=== PATIENT | female | born 1975 | race Caucasian/White ===

== ENCOUNTER 2017-07-01 17:45 | Emergency (ER) | payer OTHER ==
[2017-07-01 17:55] VITALS: BMI 34.9
--- NOTE | 2017-07-01 17:56 | PDOC ---
Rapid Medical Evaluation Time Seen by Provider: 07/01/17 17:49 Medical Evaluation: Allergies Allergy/AdvReac Type Severity Reaction Status Date / Time No Known Allergies Allergy Verified 01/19/14 10:09 07/01/17 17:49 The patient presents with a chief complaint of: [Left sided back pain, Pressure with urination. Sent by Dr. Abel Mejia, r/o kidney stone because of blood in the urine. Was diagnosed with UTI on Cipro ] I have performed a brief in-person evaluation of this patient. Pertinent physical exam findings: [No cva tenderness. mild lower abdominal tenderness. ] I have ordered the following: [UA, UC, Urine preg. ] The patient will proceed to the ED for further evaluation. Discharge Disposition - Diagnosis Hematuria - Referrals - Patient Instructions - Post Discharge Activity
--- NOTE | 2017-07-01 18:41 | PDOC ---
History of Present Illness - General History Source: Patient Exam Limitations: No Limitations - History of Present Illness Initial Comments: 07/01/17 18:42 The patient is a 41 year old female with past medical history of bleeding gastric ulcer and depression who presents to the ED with complaints of left sided/LUQ pain and suprapubic pressure for the past week. The patient reported her symptoms to her PCP and was instructed to go to the ER for an ultrasound. The patient reports currently being treated for a UTI with Cipro. The patient denies history of recurrent UTI or kidney stones. She denies any fever, chills, nausea, vomiting, or diarrhea. She denies any cough, SOB, CP. The patients LMP was a few days ago. Allergies: NKDA Social: Former smoker, quit many years ago. Reports social alcohol use. Surgeries: Cholecystectomy, x2 PCP: Dr. Abel Mejia <Venessa Rodriguez - Last Filed: 07/01/17 22:53> <Miriam Muhammad - Last Filed: 07/01/17 22:58> - General Chief Complaint: Pain, Acute Stated Complaint: PCP SENT Time Seen by Provider: 07/01/17 17:49 Past History <Venessa Rodriguez - Last Filed: 07/01/17 22:53> - Past Medical History COPD: No DVT: No GI Disorders: Yes (H/O BLEEDING ULCER) - Surgical History Abdominal Surgery: Yes Cholecystectomy: (GALLSTONE REMOVAL) - Immunization History Immunization Up to Date: Yes - Suicide/Smoking/Psychosocial Hx Smoking History: Never smoked Have you smoked in the past 12 months: Yes Number of Cigarettes Smoked Daily: 20 If you are a former smoker, when did you quit?: 2012 Information on smoking cessation initiated: No Hx Alcohol Use: No Drug/Substance Use Hx: No Substance Use Type: None Hx Substance Use Treatment: No <Miriam Muhammad - Last Filed: 07/01/17 22:58> - Past Medical History Allergies/Adverse Reactions: Allergies Allergy/AdvReac Type Severity Reaction Status Date / Time No Known Allergies Allergy Verified 07/01/17 17:51 Home Medications: Ambulatory Orders Bupropion HCl [Bupropion Xl] 300 mg PO DAILY 01/13/14 Ranitidine HCl [Zantac] 150 mg PO DAILY 07/01/17 Review of Systems - Review of Systems Able to Perform ROS?: Yes Comments:: 07/01/17 18:42 CONSTITUTIONAL: Absent: fever, chills, diaphoresis, generalized weakness, malaise, loss of appetite HEENT: Absent: rhinorrhea, nasal congestion, throat pain, throat swelling, difficulty swallowing, mouth swelling, ear pain, eye pain, visual Changes CARDIOVASCULAR: Absent: chest pain, syncope, palpitations, irregular heart rate, lightheadedness , peripheral edema RESPIRATORY: Absent: cough, shortness of breath, dyspnea with exertion, orthopnea, wheezing, stridor, hemoptysis GASTROINTESTINAL: Present: suprapubic pain/pressure, LUQ pain and pressure Absent: abdominal distension, nausea, vomiting, diarrhea, constipation, melena, hematochezia GENITOURINARY: Absent: dysuria, frequency, urgency, hesitancy, hematuria, flank pain, genital pain MUSCULOSKELETAL: Absent: myalgia, arthralgia, joint swelling SKIN: Absent: rash, itching, pallor HEMATOLOGIC/IMMUNOLOGIC: Absent: easy bleeding, easy bruising, lymphadenopathy, frequent infections ENDOCRINE: Absent: unexplained weight gain, unexplained weight loss, heat intolerance, cold intolerance NEUROLOGIC: Absent: headache, focal weakness or paresthesias, dizziness, unsteady gait, seizure, mental status changes, bladder or bowel incontinence PSYCHIATRIC: Absent: anxiety, depression, suicidal or homicidal ideation, hallucinations. All Other Systems: Reviewed and Negative <Venessa Rodriguez - Last Filed: 07/01/17 22:53> *Physical Exam - Vital Signs Last Vital Signs Temp Pulse Resp BP Pulse Ox 98 F 84 16 122/96 99 07/01/17 17:51 07/01/17 17:51 07/01/17 17:51 07/01/17 17:51 07/01/17 17:51 - Physical Exam Comments: 07/01/17 18:44 GENERAL: Well developed, well nourished. Awake and alert. No acute distress. HEENT: Normocephalic, atraumatic. PERRLA, EOMI. No conjunctival pallor. Sclera are non- icteric. Moist mucous membranes. Oropharynx is clear. NECK: Supple. Full ROM. No JVD. Carotid pulses 2+ and symmetric, without bruits. No thyromegaly. No lymphadenopathy. CARDIOVASCULAR: Regular rate and rhythm. No murmurs, rubs, or gallops. Distal pulses are 2+ and symmetric. PULMONARY: No evidence of respiratory distress. Lungs clear to auscultation bilaterally. No wheezing, rales or rhonchi. ABDOMINAL: Soft. Non-tender. Non-distended. No rebound or guarding. No organomegaly. Normoactive bowel sounds. MUSCULOSKELETAL Normal range of motion at all joints. No bony deformities or tenderness. No CVA tenderness. EXTREMITIES: No cyanosis. No clubbing. No edema. No calf tenderness. SKIN: Warm and dry. Normal capillary refill. No rashes. No jaundice. NEUROLOGICAL: Alert, awake, appropriate. Cranial nerves 2-12 intact. No deficits to light touch and temperature in face, upper extremities and lower extremities. No motor deficits in the in face, upper extremities and lower extremities. Normoreflexic in the upper and lower extremities. Normal speech. Toes are down-going bilaterally. Gait is normal without ataxia. PSYCHIATRIC: Cooperative. Good eye contact. Appropriate mood and affect. <Venessa Rodriguez - Last Filed: 07/01/17 22:53> - Vital Signs Last Vital Signs Temp Pulse Resp BP Pulse Ox 98 F 84 16 122/96 99 07/01/17 17:51 07/01/17 17:51 07/01/17 17:51 07/01/17 17:51 07/01/17 17:51 <Miriam Muhammad - Last Filed: 07/01/17 22:58> ED Treatment Course - LABORATORY CBC & Chemistry Diagram: 07/01/17 20:21 07/01/17 20:21 <Venessa Rodriguez - Last Filed: 07/01/17 22:53> - LABORATORY CBC & Chemistry Diagram: 07/01/17 20:21 07/01/17 20:21 <Miriam Muhammad - Last Filed: 07/01/17 22:58> Medical Decision Making - Medical Decision Making 07/01/17 22:[address] call [address] to Dr[address] Abel Mejia, awaiting call back. <Venessa Rodriguez - Last Filed: 07/01/17 22:53> *DC/Admit/Observation/Transfer - Attestations Scribe Attestion: 07/01/17 18:44 Documentation prepared by Venessa Rodriguez, acting as medical aides teacher for Miriam Muhammad MD. <MichaelVenessa - Last Filed: 07/01/17 22:53> <Miriam Muhammad - Last Filed: 07/01/17 22:58> Diagnosis at time of Disposition: Hematuria Qualifiers: Hematuria type: gross Qualified Code(s): R31.0 - Gross hematuria - Discharge Dispostion Disposition: HOME Condition at time of disposition: Stable - Referrals Referrals: Abel Mejia MD [Primary Care Provider] - - Patient Instructions Printed Discharge Instructions: Blood in Urine, DI for Hematuria Additional Instructions: please follow up with Dr Qing Mejia on Friday at noon - Post Discharge Activity
[2017-07-01 18:47] LABS: URINE APPEARANCE CLEAR; URINE BILIRUBIN NEGATIVE (NEGATIVE); URINE BLOOD 1+ (NEGATIVE); URINE COLOR YELLOW; URINE GLUCOSE (UA) NEGATIVE (NEGATIVE); URINE KETONE NEGATIVE (NEGATIVE); URINE LEUK ESTERASE NEGATIVE (NEGATIVE); URINE NITRITE NEGATIVE (NEGATIVE); URINE PROTEIN NEGATIVE (NEGATIVE); URINE UROBILINOGEN NEGATIVE mg/dL (0.2-1.0)
[2017-07-01 18:52] LABS: HCG,QUALITATIVE URINE NEGATIVE
[2017-07-01 19:46] LABS: EPI CELLS RARE /HPF (FEW); URINE MUCUS RARE
[2017-07-01 20:32] LABS: HEMATOCRIT 39.2 % (32.4-45.2); HEMOGLOBIN 13.6 GM/dL (10.7-15.3); LYMPH % 23.3 % (8-40); MCH 31.5 pg (25.7-33.7); MCHC 34.7 g/dl (32.0-36.0); MEAN CELL VOLUME 90.7 fl (80-96); MEAN PLT VOLUME 7.9 fl (7.5-11.1); MONO % 6.9 % (3.8-10.2); NEUT % 65.8 % (42.8-82.8); PLATELET COUNT 328 K/MM3 (134-434); RBC 4.33 M/mm3 (3.60-5.2); RDW 12.9 % (11.6-15.6); WHITE BLOOD COUNT 8.6 K/mm3 (4.0-10.0)
[2017-07-01 21:10] LABS: ALK PHOS 99 U/L (45-117); ANION GAP 8 (8-16); BILIRUBIN,TOTAL 0.3 mg/dL (0.2-1.0); BLOOD UREA NITROGEN 16 mg/dL (7-18); CALCIUM 8.4 mg/dL (8.5-10.1); CHLORIDE 106 mmol/L (98-107); CO2 26 mmol/L (21-32); GLUCOSE,RANDOM 82 mg/dL (74-106); POTASSIUM 4.3 mmol/L (3.5-5.1); SGOT/AST 12 U/L (15-37); SGPT/ALT 15 U/L (12-78); SODIUM 140 mmol/L (136-145); TOT PROT 7.3 g/dl (6.4-8.2)
[2017-07-01 23:30] VITALS: BP 140/93; PULSE 69; TEMP 98.6
== END 2017-07-01 23:30 | disposition home or self-care (01) ==
LOC: JER 17:45
DX: R31.0 Gross hematuria (principal); F17.210 Nicotine dependence, cigarettes, uncomplicated
CPT/HCPCS: 36415; 74176; 76775-TC; 80053; 81003; 81015; 84703; 85025; 87086; 99284-25